=== PATIENT | male | born 1980 | race Hispanic/Latino ===

== ENCOUNTER → 2024-02-07 | Day surgery (SDC) | payer OTHER ==
[~2024-02-07] MED LIST: ALBUTEROL0.63 MG/3 INH; ALBUTEROL0.63 MG/3 NEB; HYOSCYAMINE SULFATE 0.5 MG/ML INJ ONE; LOSARTAN POTASS25 MG PO; MOUNJARO2.5 MG/0.5 SC; MULTI-VITAMIN1 EACH PO; PROPOFOL IV EMULSION 100 ML IV ONE; ZYRTEC10 M3 PO
[2024-02-07] MEDS: LACTATED RINGER'S 1,000 ML ONE (06:49)
[2024-02-07 08:27] VITALS: TEMP 97.4
[2024-02-07 08:47] VITALS: BP 129/86; PULSE 118; RESP 18; O2SAT 99
== END | disposition home or self-care (01) ==
LOC: OR 06:00
PROVIDERS: ATTEND Internal Medicine Gastroenterology
DX: Z12.11 Encounter for screening for malignant neoplasm of colon (principal); K31.7 Polyp of stomach and duodenum; K29.50 Unspecified chronic gastritis without bleeding; K52.9 Noninfective gastroenteritis and colitis, unspecified; K20.90 Esophagitis, unspecified without bleeding; K21.9 Gastro-esophageal reflux disease without esophagitis; K63.89 Other specified diseases of intestine; K64.8 Other hemorrhoids; E11.9 Type 2 diabetes mellitus without complications; I10 Essential (primary) hypertension; J45.909 Unspecified asthma, uncomplicated; E78.5 Hyperlipidemia, unspecified; M54.9 Dorsalgia, unspecified; F41.9 Anxiety disorder, unspecified; Z01.810 Encounter for preprocedural cardiovascular examination; Z79.85 Long-term (current) use of injectable non-insulin antidiabetic drugs; Z79.899 Other long term (current) drug therapy; Z80.0 Family history of malignant neoplasm of digestive organs
CPT/HCPCS: 43239; 45380; 93005; J1980; J2470; J2704; J7121; 45378